=== PATIENT | female | born 1945 | race Caucasian/White ===

== ENCOUNTER 2017-06-05 14:38 | Emergency (ER) | payer MEDICARE, MEDICAID ==
[~2017-06-05] VITALS: Ht 172.7 cm; Wt 59.0 kg
[~2017-06-05 14:38] MED LIST: AVPAK AZITHROM250 MG PO; PREDNISONE 20MG20 MG PO
[2017-06-05 15:18] LABS: HEMOGLOBIN 13.8 g/dL (12.2-16.2); LYMPH # 2.1 K/mm3 (0.7-4.5); LYMPH % 27.4 % (10-50.0)
--- OUTSIDE RECORDS SUMMARY | 2017-06-05 15:22 | External Medical Summary Rpt ---
Author Author ALLISON [facility] Organization [facility] Address Unknown Phone Unavailable Care Team Providers Care Rosin Barrel Filler Name Role Phone JUAN SCHAFFER PCP [phone] Encounter ALLISON GARCIA [id number] Date(s): 08/12/16 - 08/18/16 [facility] [address] 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, INIT Vital Signs Most recent 1 2 3 to oldest [Reference Range]: Temperature Tympanic Temporal artery Temporal artery Source (08/18/16 8:55 AM) scanning (08/18/16 scanning (08/18/16 8:45 AM) 8:20 AM) Temperature Fahrenheit Fahrenheit Fahrenheit Mode (08/18/16 8:55 AM) (08/18/16 8:45 AM) (08/18/16 8:20 AM) Temperature, 97.9 Deg F 98.0 Deg F 98.1 Deg F Fahrenheit (08/18/16 8:55 AM) (08/18/16 8:45 AM) (08/18/16 8:20 AM) [96.8-99.7 Deg F] Clinical 36.6 Deg C 36.7 Deg C 36.7 Deg C Temperature, (08/18/16 8:55 AM) (08/18/16 8:20 AM) (08/18/16 6:50 AM) C Pulse Method Pulse Oximetry (08/18/16 6:50 AM) Peripheral 86 bpm Pulse Rate (08/18/16 6:50 AM) [60-100 bpm] Heart Rate 70 bpm 82 bpm 84 bpm Monitored (08/18/16 9:21 AM) (08/18/16 8:55 AM) (1/19/17 8:40 AM) [60-100 bpm] Respiratory 16 Breaths/Min 16 Breaths/Min 14 Breaths/Min Rate [14-20 (08/18/16 9:21 AM) (08/18/16 8:55 AM) (08/18/16 8:40 AM) Breaths/Min] Blood Arm, left upper Pressure (08/18/16 6:50 AM) Location Blood 150/68 mmHg 141/61 mmHg 116/57 mmHg Pressure *HI* *HI* (08/18/16 8:40 AM) [90-140/60-9 (08/18/16 9:21 AM) (08/18/16 8:55 AM) 0 mmHg] Mean 80 78 78 Arterial (08/18/16 8:40 AM) (08/18/16 8:30 AM) (08/18/16 8:25 AM) Pressure (MAP)-BMDI Oxygen 95 % 93 % 96 % Saturation (08/18/16 9:21 AM) *LOW* (08/18/16 8:40 AM) [94-100 %] (08/18/16 8:55 AM) Oxygen Room air Room air Room air Therapy Mode (08/18/16 9:21 AM) (08/18/16 8:55 AM) (08/18/16 8:40 AM) Oxygen Flow 4 Liter/Min Rate (08/18/16 8:20 AM) Problem List Condition Effective Status Health Informant Dates Status Back Active pain(Confirm ed) Osteoporosis Active (Confirmed) Allergies, Adverse Reactions, Alerts Substance Reaction Severity Status penicillin Active Zithromax Z-Fabián Active Medications acetaminophen-oxyCODONE (Percocet 7.5/325) 1 Tab, Oral, Four Times A Day, Refills: 0 Results No data available for this section Immunizations No data available for this section Procedures No data available for this section Social History Social History Response Type Smoking Status Never smoker Assessment and Plan No data available for this section Hospital Discharge Instructions No data available for this section
--- OUTSIDE RECORDS SUMMARY | 2017-06-05 15:22 | External Medical Summary Rpt ---
Author Author ALLISON [facility] Organization [facility] Address Unknown Phone Unavailable Care Team Providers Care Private Duty Lpn Name Role Phone JUAN SCHAFFER PCP [phone] Encounter ALLISON GARCIA [id number] Date(s): 08/12/16 - 08/18/16 [facility] [address] [place] [address]- Discharge Disposition: OP Self Care or Home [...]
--- OUTSIDE RECORDS SUMMARY | 2017-06-05 15:24 | External Medical Summary Rpt | CCD ---
Author Author , CHLOE CORONA Address Unknown Phone [email or web address] Care Team Providers Care Pomology Teacher Name Role Phone [facility] Unavailable Unavailable HOSPITAL, [facility] Unavailable Unavailable [facility], [facility], Unavailable Unavailable [facility] ONEIL STEVEN, ONEIL Unavailable Unavailable STEVEN E[facility] OP[facility], Unavailable Unavailable [facility] Unavailable Unavailable Jose Luis HINDS, Jose Luis HINDS Unavailable Unavailable T ISSAC WARD, Unavailable Unavailable ISSAC WARD [facility] Unavailable Unavailable GROUP P, [facility] P SHARLENE CHR, SHARLENE CHR Unavailable Unavailable [facility] Unavailable Unavailable INC, [facility] Unavailable Unavailable HOSPITAL P, [facility] Unavailable Unavailable [facility], [facility] Unavailable Unavailable ASSOCIAT, [facility] DANIEL LISA Unavailable Unavailable HOLDINGS, [facility]LLERMO LAZO [facility], Unavailable Unavailable GUILLERMO LAZO PSC GUILLERMO LAZO MD Unavailable Unavailable PS, GUILLERMO LAZO MD PS SANTOS DIPTI, SANTOS Unavailable Unavailable DIPTI [facility] Unavailable Unavailable INTERNAL MEDI, [facility] INTER[facility] MEDI [facility] Unavailable Unavailable PSC, [facility] PSC [facility] Unavailable Unavailable AMBULANCE SE, [facility] AMBULANCE SE [facility] Unavailable Unavailable URGENT TREAT, [facility] Un[facility], Unavailable Unavailable [facility] Unavailable Unavailable [facility] [place], [facility] [place] Purpose Continuity of Care Document - 10-27-2009 through 2016 Problems Code Diagnosis DOS Provider Status [id number] COMBINED 05-09-2017 GUILLERMO QURESHI MD AGE-RELATED PS CATARACT RIGHT EYE B27634 COMBINED 05-03-2017 GUILLERMO QURESHI AGE-RELATED PSC CATARACT BILATERAL K5909 OTHER 04-19-2017 [facility] E8342 HYPOMAGNESE 03-14-2017 [facility]I HEALTH SOLUTIONS IN K5900 CONSTIPATIO 03-14-2017 [facility] N HEALTH UNSPECIFIED SOLUTIONS IN M816 LOCALIZED 03-14-2017 [facility] OSTEOPOROSI HEALTH S [place] SOLUTIONS IN M8978 MAJOR 03-14-2017 LAB DANIEL OSSEOUS LISA DEFECT HOLDINGS OTHER SITE [id number] STABLE 03-14-2017 [facility] FX HEALTH UNS THOR SOLUTIONS VERT SUB IN ENC FX RTN HLN [id number] STABLE 03-14-2017 [facility] FX HEALTH UNS LUMB SOLUTIONS VERT SUB IN ENC FX RTN HLN [id number] [facility] 09-16-2016 [place] [facility]TH[facility]IC T11-T12 ASSOCIAT VERT INIT ENC CLOS FX [id number] [facility] 09-16-2016 [place] [facility] ORTHOPEDIC 1ST LUMB ASSOCIAT VERT SUB ENC FX RTN HLN Z4889 ENCOUNTER 09-09-2016 [facility] FOR OTHER REGIONAL SPECIFIED MEDICAL SURGICAL CENTE AFTERCARE F33376 SPONDYLOSIS 08-30-2016 [facility] W/O RADIOLOGY MYELOPATH/R GROUP P ADICULOPATH Y LUMB RGN [id number] COLLAPSED 08-30-2016 [place] [facility] LUMB RGN ASSOCIAT INIT ENC FX M899 DISORDER OF 08-30-2016 [place] [facility] UNSPECIFIED ASSOCIAT M1990 UNSPECIFIED 08-18-2016 [facility] OSTEOARTHRI TIS UNSPECIFIED SITE O95157 OTHER LONG 08-18-2016 [facility] TER[facility] CURRENT DRUG THERAPY Z880 ALLERGY 08-18-2016 [facility] STATUS TO [facility] PENICILLIN Z881 ALLERGY 08-18-2016 [facility] STATUS TO [facility] OTHER ANTIBIOTIC AGENTS STATUS J11747 ENCOUNTER 08-15-2016 [facility] FOR OTHER REGIONAL PREPROCEDUR MEDICAL AL CENTE EXAMINATION M48.56XA COLLAPSED 08-04-2016 [place], NOT ELSEWHERE CLASSIFIED, LUMBAR REGION, INITIAL ENCOUNTER FOR FRACTURE Z88.0 ALLERGY 08-04-2016 STATUS TO PENICILLIN Z88.3 ALLERGY 08-04-2016 STATUS TO OTHER ANTI-INFECT NARAYAN AGENTS STATUS N200 CALCULUS OF 07-28-2016 [facility] R252 CRAMP AND 07-28-2016 [facility] SE R52 PAIN 07-28-2016 [facility] UNSPECIFIED N EMERGENCY PHYS Z883 ALLERGY 07-28-2016 [place] [facility]US OTH [facility] ANTI-INFECT HOSPITAL NARAYAN AGENTS STATUS M546 PAIN IN 06-29-2016 [facility] SPINE URGENT TREAT N758 OTHER 06-29-2016 [facility] DISEASES OF [facility] BARTHOLINS URGENT GLAND TREAT R1013 EPIGASTRIC 06-29-2016 [facility] E782 MIXED 10-05-2015 [facility] HYPERLIPIDE [facility] MARI URGENT TREAT R42 DIZZINESS 07-01-2015 [facility] GIDDINESS URGENT TREAT Z0000 ENCOUNTER 07-01-2015 [facility] GEN ADULT [facility] MED EXAM URGENT W/O TREAT ABNORMAL FIND [id number] DISPL FX 06-29-2015 [facility] [place] [facility] MALLEOLUS LT FIB SUBS CLOS FX RTN [id number] NDSPL FX 06-29-2015 [facility] LT FIBULA INIT CLOS FX P03909 CORTICAL 06-05-2015 ONEIL STEVEN AGE-RELATED CATARACT BILATERAL H2513 AGE-RELATED 06-05-2015 ONEIL STEVEN NUCLEAR CATARACT BILATERAL H34615 PAIN IN 05-19-2015 [facility] [place] LEFT FOOT RADIOLOGY [id number] DISPL FX 05-19-2015 [facility] UNS FIBULA INIT CLOS FX 7241 PAIN IN 03-31-2015 [facility] SPINE INC 7242 LUMBAGO 03-31-2015 [facility] HOS[facility] INC V571 OTHER 03-31-2015 [facility] THERAPY INC 27858 PATHOLOGIC 02-19-2015 [place] FRACTURE OF MEDICAL VERTEBRAE IMAGING ASS 01375 KYPHOSIS 02-19-2015 [place] ACQUIRED [facility] POSTURAL IMAGING ASS 8052 CLOS FX 02-19-2015 [facility] DORS [facility] VERTEBRA INC W/O MENTION SP CORD INJURY 53444 DISPLCMT 02-11-2015 [place] LUMBAR MEDICAL INTERVERT IMAGING ASS DISC W/O MYELOPATHY 17073 SPINAL STEN 02-11-2015 [place] LUMB REG MEDICAL W/O IMAGING ASS NEUROGENIC CLAUDICATIO N 44614 UNSPECIFIED 02-11-2015 [facility] OSTEOPOROSI IMAGING ASS S 7245 UNSPECIFIED 01-27-2015 [place] [facility] 8471 THORACIC 12-13-2014 [facility] SPRAIN AND N EMERGENCY STRAIN PHYS 8479 SPRAIN AND 12-13-2014 [facility] UNSPECIFIED HOSPITAL SITE OF BACK E9289 UNSPECIFIED 12-13-2014 [facility] ACCIDENT N EMERGENCY PHYS V140 PERSONAL 12-13-2014 [place] HISTORY OF COMMUNITY ALLERGY TO HOSPITAL PENICILLIN 7392 NONALLOPATH 12-12-2014 SHARLENE CHR IC LESION OF THORACIC REGION NEC 7394 NONALLOPATH 12-12-2014 SH[facility]E CHR IC LESION OF SACRAL REGION NEC 8460 SPRAIN AND 12-12-2014 SHARLENE CHR STRAIN OF LUMBOSACRAL 5119 UNSPECIFIED 07-12-2014 [facility] PLEURAL [facility] P 11755 OTHER 07-12-2014 [place] DISEASES OF MEDICAL LUNG NOT IMAGING ASS ELSEWHERE CLASSIFIED 12507 CHEST PAIN 07-12-2014 [place] UNSPECIFIED MEDICAL IMAGING ASS 29011 OTHER CHEST 07-12-2014 [facility] PAIN [facility] P V1582 PERS HX 07-12-2014 [facility] TOBACCO USE [facility] P [facility] 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 3804 IMPACTED 05-16-2012 [facility]EN [facility] PSC 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 FRACTURE OF UPPER END OF TIBIA 05565 ENTHESOPATH 11-11-2009 [facility] Y OF PODIATRY UNSPECIFIED PLLC SITE 37396 PLICA 11-11-2009 [facility] SYNDROME PODIATRY PLLC 7295 PAIN IN 11-11-2009 [facility] SOFT PODIATRY TISSUES OF PLLC LIMB 73871 UNSPECIFIED 11-11-2009 [facility] SITE OF PODIATRY ANKLE PLLC SPRAIN AND STRAIN 78393 DISORDER OF 11-04-2009 [place] BONE AND [facility] CARTILAGE [facility] UNSPECIFIED V4981 ASYMPTOMATI 11-04-2009 [facility] [place] C RADIOLOG[facility] POSTMENOPAU MURIEL STATUS 15653 PATHOLOGIC 10-27-2009 EL[facility] L.P. FRACTURE UNSPECIFIED SITE 60972 CLOSED 10-27-2009 [facility] FRACTURE OF PODIATRY [facility] FIBULA K59.09 OTHER CONSTIP[facility]IO N Encounters Encounter Start End Date Code Location Performer Type Date HOSPITAL [facility] - 7 7 [facility] - 7 7 [facility] - 7 7 [facility] - [facility] - 7 7 [facility] - 7 7 [facility] - [address] [facility] [address] [facility] - [address] [facility] - 5 5 [facility] - 5 5 [facility] - 5 5 [facility] - 5 5 [facility] [address] [facility] - [address] [facility] - 4 4 [facility] - 0 0 [facility] - 0 0 [facility] - 0 0 [facility]
--- OUTSIDE RECORDS SUMMARY | 2017-06-05 15:24 | External Medical Summary Rpt | CCD ---
Author Author , CHLOE CORONA Address Unknown Phone [email or web address] Care Team Providers Care Publication Manager Name Role Phone [facility] Unavailable Unavailable [facility], [facility] Unavailable Unavailable MEDICAL CENTE, [facility], Unavailable Unavailable [facility] ONEIL STEVEN, ONEIL Unavailable Unavailable STEVEN ESVIN OPAL, Unavailable Unavailable [facility] OPAL [facility] L[facility] Unavailable Unavailable Jose Luis HINDS, Jose Luis HINDS Unavailable Unavailable T ISSAC WARD, Unavailable Unavailable ISSAC WARD [facility] Unavailable Unavailable GROUP P, [facility] SHARLENE CHR, SHARLENE CHR Unavailable Unavailable [facility] Unavailable Unavailable INC, [facility] Unavailable Unavailable HOSPITAL P, [facility] Unavailable Unavailable IM[facility]ING [facility], [facility] Unavailable Unavailable ASSOCIAT, [facility] LAB DANIEL LISA Unavailable Unavailable HOLDINGS, LAB DANIEL LISA HOLDINGS GUILLERMO LAZO PSC, Unavailable Unavailable GUILLERMO LAZO PSC GUILLERMO LAZO MD Unavailable Unavailable PS, GUILLERMO LAZO MD PS SANTOS DIPTI, SANTOS Unavailable Unavailable DIPTI [facility] Unavailable Unavailable INTERNAL MEDI, [facility] INTERNAL MEDI [facility] Unavailable [facility]available PSC, [facility] PSC [facility] Unavailable Unavailable AMBULANCE SE, [facility] AMBULANCE SE [facility] Unavailable Unavailable URGENT TREAT, [facility] Un[facility], Unavailable Unavailable [facility] Unavailable Unavailable SOLUTIONS [place], [employer] [place] Purpose Continuity of Care Document - 10-27-2009 through 2016 Problems Code Diagnosis DOS Provider Status [id number] COMBINED 05-09-2017 GUILLERMO QURESHI MD AGE-RELATED PS CATARACT RIGHT EYE W07701 COMBINED 05-03-2017 GUILLERMO QURESHI AGE-RELATED PSC CATARACT BILATERAL K5909 OTHER 04-19-2017 [facility] INC E8342 HYPOMAGNESE 03-14-2017 [facility]ALTH SOLUTIONS IN K5900 CONSTIPATIO 03-14-2017 [facility] N HEALTH UNSPECIFIED SOLUTIONS IN M816 LOCALIZED 03-14-2017 [facility] OSTEOPOROSI HEALTH S [place] SOLUTIONS IN M8978 MAJOR 03-14-2017 LAB DANIEL OSSEOUS LISA DEFECT HOLDINGS OTHER SITE N40086L STABLE 03-14-2017 [facility] FX HEALTH UNS THOR SOLUTIONS VERT SUB IN ENC FX RTN HLN [id number] STABLE 03-14-2017 [facility] FX HEALTH UNS LUMB SOLUTIONS VERT SUB IN ENC FX RTN HLN [id number] [facility]GE 09-16-2016 [place] [facility] ORTHOPEDIC T11-T12 ASSOCIAT VERT INIT ENC CLOS FX [id number] [facility] 09-16-2016 [place] [facility] FX ORTHOPEDIC 1ST LUMB ASSOCIAT VERT SUB ENC FX RTN HLN Z4889 ENCOUNTER 09-09-2016 [facility] FOR OTHER REGIONAL SPECIFIED MEDICAL SURGICAL CENTE AFTERCARE K51162 SPONDYLOSIS 08-30-2016 [facility] W/O RADIOLOGY MYELOPATH/R GROUP P ADICULOPATH Y LUMB RGN [id number] COLLAPSED 08-30-2016 [place] [facility]TH[facility]EDIC LUMB RGN ASSOCIAT INIT ENC FX M899 DISORDER OF 08-30-2016 [place] [facility] UNSPECIFIED ASSOCIAT M1990 UNSPECIFIED 08-18-2016 [facility] OSTEOARTHRI TIS UNSPECIFIED SITE P61470 OTHER LONG 08-18-2016 [facility] TERM [facility] CURRENT DRUG THERAPY Z880 ALLERGY 08-18-2016 [facility] STATUS TO [facility] PENICILLIN Z881 ALLERGY 08-18-2016 [facility] STATUS TO [facility] OTHER ANTIBIOTIC AGENTS STATUS M34148 ENCOUNTER 08-15-2016 [facility] FOR OTHER REGIONAL PREPROCEDUR MEDICAL AL CENTE EXAMINATION M48.56XA COLLAPSED 08-04-2016 [place], NOT ELSEWHERE CLASSIFIED, LUMBAR REGION, INITIAL ENCOUNTER FOR FRACTURE Z88.0 ALLERGY 08-04-2016 STATUS TO PENICILLIN Z88.3 ALLERGY 08-04-2016 STATUS TO OTHER ANTI-INFECT NARAYAN AGENTS STATUS N200 CALCULUS OF 07-28-2016 [facility] [place] [facility] R252 CRAMP AND 07-28-2016 [facility] AMBULANCE SE R52 PAIN 07-28-2016 [facility] UNSPECIFIED N EMERGENCY PHYS Z883 ALLERGY 07-28-2016 [place] STATUS OTH [facility] ANTI-INFECT HOSPITAL NARAYAN AGENTS STATUS M546 PAIN IN 06-29-2016 [facility] THORACIC [facility] SPINE URGENT TREAT N758 OTHER 06-29-2016 [facility] DISEASES OF [facility] BARTHOLINS URGENT GLAND TREAT R1013 EPIGASTRIC 06-29-2016 [facility] E782 MIXED 10-05-2015 [facility] HYPERLIPIDE [facility] MARI URGENT TREAT R42 DIZZINESS 07-01-2015 [facility] AND [facility] GIDDINESS URGENT TREAT Z0000 ENCOUNTER 07-01-2015 [facility] GEN ADULT [facility] MED EXAM URGENT W/O TREAT ABNORMAL FIND [id number] DISPL FX 06-29-2015 [facility] [place] [facility] MALLEOLUS LT FIB SUBS CLOS FX RTN [id number] NDSPL FX 06-29-2015 [facility] LT FIBULA INIT CLOS FX N50145 CORTICAL 06-05-2015 ONEIL STEVEN AGE-RELATED CATARACT BILATERAL H2513 AGE-RELATED 06-05-2015 ONEIL STEVEN NUCLEAR CATARACT BILATERAL C49807 PAIN IN 05-19-2015 [facility] [place] LEFT FOOT RADIOLOGY E1320KH DISPL FX 05-19-2015 [facility] UNS FIBULA INIT CLOS FX 7241 PAIN IN 03-31-2015 [facility] SPINE INC 7242 LUMBAGO 03-31-2015 [facility] HOS[facility] INC V571 OTHER 03-31-2015 [facility] THERAPY INC 66775 PATHOLOGIC 02-19-2015 [place] FRACTURE OF MEDICAL VERTEBRAE IMAGING ASS 05092 KYPHOSIS 02-19-2015 [place] ACQUIRED MEDICAL POSTURAL IMAGING ASS 8052 CLOS FX 02-19-2015 [facility]ORS [facility] VERTEBRA INC W/O MENTION SP CORD INJURY 71088 DISPLCMT 02-11-2015 [place] L[facility] INTERVERT IMAGING ASS DISC W/O MYELOPATHY 87517 SPINAL STEN 02-11-2015 [place] L[facility] REG MEDICAL W/O IMAGING ASS NEUROGENIC CLAUDICATIO N 58550 UNSPECIFIED 02-11-2015 [place] [facility] OSTEOPOROSI IMAGING ASS S 7245 UNSPECIFIED 01-27-2015 [place] [facility] 8471 THORACIC 12-13-2014 [facility] SPRAIN AND N EMERGENCY STRAIN PHYS 8479 SPRAIN AND 12-13-2014 [facility] UNSPECIFIED HOSPITAL SITE OF BACK E9289 UNSPECIFIED 12-13-2014 [facility] ACCIDENT N EMERGENCY PHYS V140 PERSONAL 12-13-2014 [place] HISTORY OF COMMUNITY ALLERGY TO HOSPITAL PENICILLIN 7392 NONALLOPATH 12-12-2014 [facility] CHR IC LESION OF THORACIC REGION NEC 7394 NONALLOPATH 12-12-2014 [facility] CHR IC LESION OF SACRAL REGION NEC 8460 SPRAIN AND 12-12-2014 SH[facility]E CHR STRAIN OF LUMBOSACRAL 5119 UNSPECIFIED 07-12-2014 [place] PLEURAL [facility] P 16574 OTHER 07-12-2014 [place] DISEASES OF MEDICAL LUNG NOT IMAGING ASS ELSEWHERE CLASSIFIED 43165 CHEST PAIN 07-12-2014 [place] UNSPECIFIED MEDICAL IMAGING ASS 58765 OTHER CHEST 07-12-2014 [place] PAIN [facility] P V1582 PERS HX 07-12-2014 [place] TOBACCO USE [facility] P HAZARDS HEALTH 83720 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-2012 [facility] IBULAR JOINT DISORDERS 3804 IMPACTED 05-16-2012 [facility] PSC 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 FRACTURE OF UPPER END OF [place] 67500 ENTHESOPATH 11-11-2009 [facility] Y OF PODIATRY UNSPECIFIED PLLC SITE 07241 PLICA 11-11-2009 [facility] SYNDROME PODIATRY PLLC 7295 PAIN IN 11-11-2009 [facility] SOFT PODIATRY TISSUES OF PLLC [place] 41501 UNSPECIFIED 11-11-2009 [facility] SITE OF PODIATRY ANKLE PLLC SPRAIN AND STRAIN 10441 DISORDER OF 11-04-2009 [place] [facility] UNSPECIFIED V4981 ASYMPTOMATI 11-04-2009 [facility] [place] [facility] RADIOLOGY POSTMENOPAU MURIEL STATUS 28935 PATHOLOGIC 10-27-2009 [facility] FRACTURE UNSPECIFIED SITE 52715 CLOSED 10-27-2009 [facility] FRACTURE OF PODIATRY [facility] K59.09 OTHER CONSTIPATIO N Encounters Encounter Start End Date Code Location Performer Type Date [facility] - 7 7 [facility] - 7 7 [facility] - 7 7 [facility] - 7 7 [facility] - 7 7 [facility] - 7 7 [facility] - 6 6 [facility] - 5 5 [facility] - 5 5 [facility] - 5 5 [facility] - 5 5 [facility] - 5 5 [facility] - 5 5 [facility] [place] - 5 5 [facility] - 5 5 [facility] - 4 4 [facility] - 0 0 [facility] 0 0 [facility] [place] - 0 0 [facility]
--- OUTSIDE RECORDS SUMMARY | 2017-06-05 15:26 | External Medical Summary Rpt | CCD ---
Author Author , CHLOE CORONA Address Unknown Phone [email or web address] Care Team Providers Care Flexible Nanny Name Role Phone [facility] Unavailable Unavailable HOSPITAL, [facility] Unavailable Unavailable MEDICAL CENTE, [facility], Unavailable Unavailable [facility] ONEIL STEVEN, ONEIL Unavailable Unavailable STEVEN [facility], Unavailable Unavailable [facility] L[facility]P. Unavailable Unavailable Jose Luis HINDS, Jos eLuis HINDS Unavailable Unavailable T ISSAC WARD, Unavailable Unavailable ISSAC WARD [facility] Unavailable Unavailable GROUP P, [facility] SHARLENE CHR, SHARLENE CHR Unavailable Unavailable [facility] Un[facility] Un[facility], [facility] Unavailable Unavailable [facility]PITAL P, [facility] Un[facility] Un[facility], [facility] Unavailable Unavailable ASS[facility]AT, [facility] DANIEL LISA Unavailable Unavailable HOLDINGS, [facility], Unavailable Unavailable [facility] GUILLERMO LAZO MD Unavailable Unavailable PS, GUILLERMO LAZO MD PS SANTOS DIPTI, SANTOS Unavailable Unavailable [facility] Unavailable Unavailable INTER[facility] MEDI, [facility] Unavailable Unavailable PSC, [facility] Unavailable [facility]available AMBULANCE SE, [facility] Unavailable Unavailable URGENT TREAT, [facility] Unavailable Unavailable [facility], [facility], Unavailable Unavailable [facility] Unavailable Unavailable SOLUTIONS IN, Diab[facility] IN Purpose Continuity of Care Document - 10-27-2009 through 2016 Problems Code Diagnosis DOS Provider Status [id number] COMBINED 05-09-2017 GUILLERMO QURESHI MD AGE-RELATED PS CATARACT RIGHT EYE H65857 COMBINED 05-03-2017 GUILLERMO QURESHI AGE-RELATED PSC CATARACT BILATERAL K5909 OTHER 04-19-2017 [facility] E8342 HYPOMAGNESE 08-15-2017 [facility] SOLUTIONS IN K5900 CONSTIPATIO 03-14-2017 [facility] N HEALTH UNSPECIFIED SOLUTIONS IN M816 LOCALIZED 03-14-2017 [facility]I [facility] S [place] SOLUTIONS IN M8978 MAJOR 03-14-2017 LAB DANIEL OSSEOUS LISA DEFECT HOLDINGS OTHER SITE [id number] STABLE 03-14-2017 [facility] UNS THOR SOLUTIONS VERT SUB IN ENC FX RTN HLN [id number] STABLE 03-14-2017 [facility] UNS LUMB SOLUTIONS VERT SUB IN ENC FX RTN HLN [id number] [facility] 09-16-2016 [place] [facility] T11-T12 ASSOCIAT VERT INIT ENC CLOS FX [id number] [facility] 09-16-2016 [place] [facility] 1ST LUMB ASSOCIAT VERT SUB ENC FX RTN HLN Z4889 ENCOUNTER 09-09-2016 [facility] FOR OTHER REGIONAL SPECIFIED MEDICAL SURGICAL CENTE AFTERCARE U07506 SPONDYLOSIS 08-30-2016 [facility] W/O RADIOLOGY MYELOPATH/R GROUP P ADICULOPATH Y LUMB RGN [id number] COLLAPSED 08-30-2016 [facility] VERT NEC ORTHOPEDIC LUMB RGN ASSOCIAT INIT ENC FX M899 DISORDER OF 08-30-2016 [facility] BONE ORTHOPEDIC UNSPECIFIED ASSOCIAT M1990 UNSPECIFIED 08-18-2016 [facility] OSTEOARTHRI TIS UNSPECIFIED SITE M72634 OTHER LONG 08-18-2016 [facility] TERM EAST CURRENT DRUG THERAPY Z880 ALLERGY 08-18-2016 [facility] STATUS TO [facility] PENICILLIN Z881 ALLERGY 08-18-2016 [facility] STATUS TO [facility] OTHER ANTIBIOTIC AGENTS STATUS G84565 ENCOUNTER 08-15-2016 [facility] FOR OTHER REGIONAL PREPROCEDUR MEDICAL AL CENTE EXAMINATION N200 CALCULUS OF 07-28-2016 [facility] R252 CRAMP AND 07-28-2016 [facility] SPASM [facility] SE R52 PAIN 07-28-2016 [facility] UNSPECIFIED N EMERGENCY PHYS Z883 ALLERGY 07-28-2016 [place] STATUS OTH COMMUNITY ANTI-INFECT HOSPITAL NARAYAN AGENTS STATUS M546 PAIN IN 06-29-2016 [facility] THORACIC [facility] SPINE URGENT TREAT N758 OTHER 06-29-2016 [facility] DISEASES OF [facility] BARTHOLIN URGENT GLAND TREAT R1013 EPIGASTRIC 06-29-2016 [facility] PAIN [facility] URGENT TREAT E782 MIXED 10-05-[address] [facility] URGENT TREAT R42 DIZZINESS 07-01-2015 [facility] AND [facility] GIDDINESS URGENT TREAT Z0000 ENCOUNTER 07-01-2015 [place] GEN ADULT [facility] MED EXAM URGENT W/O TREAT ABNORMAL FIND [id number] DISPL FX 06-29-2015 [facility] [place] [facility] MALLEOLUS LT FIB SUBS CLOS FX RTN [id number] NDSPL FX 06-29-2015 [facility] LT FIBULA INIT CLOS FX [id number] CORTICAL 06-05-2015 ONEIL STEVEN AGE-RELATED CATARACT BILATERAL H2513 AGE-RELATED 06-05-2015 ONEIL STEVEN NUCLEAR CATARACT BILATERAL Y11603 PAIN IN 05-19-2015 [facility] [place] LEFT FOOT RADIOLOGY [id number] DISPL FX 05-19-2015 [facility] UNS FIBULA INIT CLOS FX 7241 PAIN IN 03-31-2015 [place] THORACIC [facility] SPINE INC 7242 LUMBAGO 03-31-2015 [facility] HOSP INC V571 OTHER 03-31-2015 [place] PHYSICAL [facility] THERAPY INC 99833 PATHOLOGIC 02-19-2015 [place] FRACTURE OF MEDICAL VERTEBRAE IMAGING ASS 66425 KYPHOSIS 02-19-2015 [place] ACQUIRED MEDICAL POSTURAL IMAGING ASS 8052 CLOS FX 02-19-2015 [place] DORS [facility] VERTEBRA INC W/O MENTION SP CORD INJURY 55010 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 75193 SPINAL STEN 02-11-2015 [place] LUMB REG MEDICAL W/O IMAGING ASS NEUROGENIC CLAUDICATIO N 51507 UNSPECIFIED 02-11-2015 [place] [facility] OSTEOPOROSI IMAGING ASS S 7245 UNSPECIFIED 01-27-2015 [place] [facility] 8471 THORACIC 12-13-2014 [facility] SPRAIN AND N EMERGENCY STRAIN PHYS 8479 SPRAIN AND 12-13-2014 [place] STRAIN OF [facility] SITE OF BACK E9289 UNSPECIFIED 12-13-2014 [facility] ACCIDENT N EMERGENCY PHYS V140 PERSONAL 12-13-2014 [place] HISTORY OF COMMUNITY ALLERGY TO HOSPITAL PENICILLIN 7392 NONALLOPATH 12-12-2014 SH[facility]E CHR IC LESION OF THORACIC REGION NEC 7394 NONALLOPATH 12-12-2014 [facility] CH[facility] IC LESION OF SACRAL REGION NEC 8460 SPRAIN AND 12-12-2014 [facility] CHR STRAIN OF LUMBOSACRAL 5119 UNSPECIFIED 07-12-2014 [place] PLEURAL [facility] H[facility] P 47981 OTHER 07-12-2014 [place] DISEASES OF MEDICAL LUNG NOT IMAGING ASS ELSEWHERE CLASSIFIED 60175 CHEST PAIN 07-12-2014 [facility] UNSPECIFIED MEDICAL IMAGING ASS 47073 OTHER CHEST 07-12-2014 [place] PAIN [facility] P V1582 PERS HX 07-12-2014 [place] TOBACCO USE [facility] P [facility]ZARDS HEALTH 84513 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-2012 [facility]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 FRACTURE OF UPPER END OF TIBIA 87787 ENTHESOPATH 11-11-2009 [facility] Y OF PODIATRY UNSPECIFIED PLLC SITE 70323 PLICA 11-11-2009 [facility] SYNDROME PODIATRY PLLC 7295 PAIN IN 11-11-2009 [facility] SOFT PODIATRY TISSUES OF PLLC LIMB 54920 UNSPECIFIED 11-11-2009 [facility] SITE OF PODIATRY ANKLE PLLC SPRAIN AND STRAIN 19666 DISORDER OF 11-04-2009 [facility] UNSPECIFIED V4981 ASYMPTOMATI 11-04-2009 [facility] [place] [facility] POSTMENOPAU MURIEL STATUS 58866 PATHOLOGIC 10-27-2009 [facility] L.P. FRACTURE UNSPECIFIED SITE 60902 CLOSED 10-27-2009 [facility] FRACTURE OF PODIATRY SHAFT OF PLLC FIBULA Encounters Encounter Start End Date Code Location Performer Type Date [facility]OSPITAL [facility] - 7 7 [facility] 7 [facility] - 7 7 [facility] - 7 7 [facility] [place] [facility] 6 [facility] - 5 5 [facility] [place] [facility] - [facility] [place] [facility] 0 0 [facility]
--- OUTSIDE RECORDS SUMMARY | 2017-06-05 15:26 | External Medical Summary Rpt ---
Author Author CHLOE Vásquez, CHLOE Production Organization [employer] Address Unknown Phone Unavailable Results Comprehensive metabolic 2000 panel in Serum or Plasma Observa Value Referen Units Interpr Notes Date tion ce etation Range Albumin/G 1.1 - 1.8 No Normal No Sep 20 lobulin informati informati 2017 [Mass on in on in 12:38 PM ratio] in source source Serum or data data Plasma Albumin 3.4 - 5.0 gm/dL Normal No Sep 20 [Mass/vol informati 2017 ume] in on in 12:38 PM Serum or source Plasma data Alkaline 46 - 116 U/L Normal No Sep 20 phosphata informati 2017 se on in 12:38 PM [Enzymati source c data activity/ volume] in Serum or Plasma Bilirubin 0.2 - 1.0 mg/dL Normal No Sep 20 .total informati 2017 [Mass/vol on in 12:38 PM ume] in source Serum or data Plasma Urea 7 - 18 mg/dL Normal No Sep 20 nitrogen informati 2017 [Mass/vol on in 12:38 PM ume] in source Serum or data Plasma Calcium 8.5 - mg/dL Normal No Sep 20 [Mass/vol 10.1 informati 2017 ume] in on in 12:38 PM Serum or source Plasma data Chloride 98 - 107 mmoL/L Normal No Sep 20 [Moles/vo informati 2017 lume] in on in 12:38 PM Serum or source Plasma data Carbon 21.0 - mmoL/L Normal No Sep 20 dioxide, 32.0 informati 2017 total on in 12:38 PM [Moles/vo source lume] in data Serum or Plasma Creatinin 0.55 - mg/dL Normal No Sep 20 e 1.02 informati 2017 [Mass/vol on in 12:38 PM ume] in source Serum or data Plasma Estimated 59- ML/MIN No REFERENCE Sep 20 informati RANGE: 2017 glomerula on in >60 12:38 PM r source ML/MIN/1. filtratio data 73 SQUARE n rate METERSIf (GF this patient is -A merican, then multiply theresult by 1.210. Globulin 1.3 - 3.2 gm/dL Normal No Sep 20 [Mass/vol informati 2017 ume] in on in 12:38 PM Serum source data Glucose 74 - 106 mg/dL Normal No Sep 20 [Mass/vol informati 2017 ume] in on in 12:38 PM Serum or source Plasma data Potassium 3.5 - 5.1 mmoL/L Normal No Sep 20 inform 2017 [Moles/vo on in 12:38 PM lume] in source Serum or data Plasma Sodium 136 - 145 mmoL/L Normal No Sep 20 [Moles/vo informati 2017 lume] in on in 12:38 PM Serum or source Plasma data Aspartate 15 - 37 U/L Normal No Sep 20 inform2016 aminotran on in 12:38 PM sferase source [Enzymati data c activity/ volume] in Serum or Plasma Alanine 12 - 78 U/L Normal No Sep 20 aminotran inform2016 sferase on in 12:38 PM [Enzymati source c data activity/ volume] in Serum or Plasma Protein 6.4 - 8.2 gm/dL Normal No Sep 20 [Mass/vol informati 2017 ume] in on in 12:38 PM Serum or source Plasma data CBC W Auto Differential panel in Blood Observa Value Referen Units Interpr Notes Date tion ce etation Range Basophils 0 - 0.2 K/MM3 Normal No Sep 20 2016 [#/volume on in 12:38 PM ] in source Blood by data Automated count Basophils 0.1 - 2.0 % Normal No Sep 20 /100 inform2016 leukocyte on in 12:38 PM s in source Blood by data Automated count Eosinophi 0.0 - 0.4 K/mm3 Normal No Sep 20 ls informati 2016 [#/volume on in 12:38 PM ] in source Blood by data Automated count Eosinophi 0.1 - % Normal No Sep 20 ls/100 12.0 informati 2016 leukocyte on in 12:38 PM s in source Blood by data Automated count Granulocy 1.8 - 7.8 K/mm3 Normal No Sep 20 theo informati 2016 [#/volume on in 12:38 PM ] in source Blood by data Automated count Granulocy 37.0 - % Normal No Sep 20 theo/100 80.0 informati 2016 leukocyte on in 12:38 PM s in source Blood by data Automated count Hematocri 37.0 - % Normal No Sep 20 t [Volume 47.0 inform2016 on in 12:38 PM Fraction] source of Blood data Hemoglobi 12.2 - g/dL Normal No Sep 20 n 16.2 inform2016 [Mass/vol on in 12:38 PM ume] in source Blood data Lymphocyt 0.7 - 4.5 K/mm3 Normal No Sep 20 es 2016 [#/volume on in 12:38 PM ] in source Unspecifi data ed specimen by Automated count Lymphocyt 10 - 50.0 % Normal No Sep 20 es inform2016 [#/volume on in 12:38 PM ] in source Unspecifi data ed specimen by Automated count Erythrocy 27 - 31.2 pg High No Sep 20 te mean inform2016 corpuscul on in 12:38 PM ar source hemoglobi data n [Entitic mass] Erythrocy 31.8 - g/dl Normal No Sep 20 te mean 35.4 inform2016 corpuscul on in 12:38 PM ar source hemoglobi data n concentra tion [Mass/vol ume] by Automated count Erythrocy 82.2 - fl Normal No Sep 20 te mean 97.8 inform2016 corpuscul on in 12:38 PM ar volume source [Entitic data volume] by Automated count Monocytes 0.1 - 1.0 K/mm3 Normal No Sep 20 2016 [#/volume on in 12:38 PM ] in source Blood by data Automated count Monocytes 1.7 - 9.3 % Normal No Sep 20 /100 2016 leukocyte on in 12:38 PM s in source Blood by data Automated count Platelet 7.4 - fl Low No Sep 20 mean 10.4 inform2016 volume on in 12:38 PM [Entitic source volume] data in Blood by Automated count Platelets 142 - 424 K/mm3 Normal No Sep 20 2016 [#/volume on in 12:38 PM ] in source Blood data Erythrocy 4.2 - 5.4 M/mm3 Normal No Sep 20 theo inform2016 [#/volume on in 12:38 PM ] in source Amniotic data fluid Erythrocy 11.5 - % Normal No Sep 20 te 17.5 inform2016 distribut on in 12:38 PM ion width source [Entitic data volume] by Automated count Leukocyte 4.8 - K/MM3 Normal No Sep 20 s 10.8 informati 2017 [#/volume on in 12:38 PM ] in source Blood data
--- OUTSIDE RECORDS SUMMARY | 2017-06-05 15:26 | External Medical Summary Rpt | CCD ---
Demographics Preferred Language Korean Marital Status Unknown Orthodoxy Affiliation Unknown Race Unknown Ethnic Group Unknown Author Author , CHLOE CORONA Address Unknown Phone Immunization No patient found.
--- OUTSIDE RECORDS SUMMARY | 2017-06-05 15:26 | External Medical Summary Rpt | CCD ---
Author Author , CHLOE CORONA Address Unknown Phone [email or web address] Care Team Providers Care Supervisor Beet End Name Role Phone [facility] Unavailable Unavailable HOSPITAL, [facility] Unavailable Unavailable MEDICAL CENTE, [facility], Unavailable Unavailable [facility] ONEIL STEVEN, ONEIL Unavailable Unavailable STEVEN [facility], Unavailable Unavailable [facility] Unavailable Unavailable Jose Luis HINDS, Jose Luis HINDS Unavailable Unavailable T ISSAC WARD, Unavailable Unavailable ISSAC WARD [facility] Unavailable Unavailable GROUP P, [facility] SHARLENE CHR, SHARLENE CHR Unavailable Unavailable [facility] Un[facility] Unavailable [facility], [facility] Unavailable Unavailable HOSPITAL P, [facility] Unavailable Unavailable [facility], [facility] Unavailable Unavailable ASSOCIAT, [facility] DANIEL LISA Unavailable Unavailable HOLDINGS, [facility], Unavailable Unavailable [facility] GUILLERMO LAZO MD Unavailable Unavailable PS, GUILLERMO LAZO MD PS SANTOS DIPTI, SANTOS Unavailable Unavailable [facility] Un[facility] INTERNAL MEDI, [facility] Unavailable Unavailable PSC, [facility] Unavailable Unavailable AMBULANCE SE, [facility] Unavailable Unavailable URGENT TREAT, [facility] Unavailable [facility]available EMERGENCY PHYS, [facility], Unavailable Unavailable [facility] Unavailable Unavailable SOLUTIONS IN, [facility] [place] Purpose Continuity of Care Document - 10-27-2009 through 2016 Problems Code Diagnosis DOS Provider Status [id number] COMBINED 05-09-2017 GUILLERMO QURESHI MD AGE-RELATED PS CATARACT RIGHT EYE C31307 COMBINED 05-03-2017 GUILLERMO QURESHI AGE-RELATED PSC CATARACT BILATERAL K5909 OTHER 04-19-2017 [facility] E8342 HYPOMAGNESE 08-15-2017 [facility] SOLUTIONS IN K5900 CONSTIPATIO 03-14-2017 [facility] N HEALTH UNSPECIFIED SOLUTIONS IN M816 LOCALIZED 03-14-2017 [facility] OSTEOP[facility]OSI [facility] S [place] SOLUTIONS IN M8978 MAJOR 03-14-2017 LAB DANIEL OSSEOUS LISA DEFECT HOLDINGS OTHER SITE [id number] STABLE 03-14-2017 [facility] FX HEALTH UNS THOR SOLUTIONS VERT SUB IN ENC FX RTN HLN [id number] STABLE 03-14-2017 [facility]ALTH UNS LUMB SOLUTIONS VERT SUB IN ENC FX RTN HLN [id number] WEDGE 09-16-2016 [place] [facility] T11-T12 ASSOCIAT VERT INIT ENC CLOS FX [id number] WEDGE 09-16-2016 [place] [facility] 1ST LUMB ASSOCIAT VERT SUB ENC FX RTN HLN Z4889 ENCOUNTER 09-09-2016 [facility] FOR OTHER REGIONAL SPECIFIED MEDICAL SURGICAL CENTE AFTERCARE Q06848 SPONDYLOSIS 08-30-2016 [facility] W/O RADIOLOGY MYELOPATH/R GROUP P ADICULOPATH Y LUMB RGN [id number] COLLAPSED 08-30-2016 [facility] VERT NEC ORTHOPEDIC LUMB RGN ASSOCIAT INIT ENC FX M899 DISORDER OF 08-30-2016 [facility] BONE ORTHOPEDIC UNSPECIFIED ASSOCIAT M1990 UNSPECIFIED 08-18-2016 [facility] OSTEOARTHRI TIS UNSPECIFIED SITE S23589 OTHER LONG 08-18-2016 [facility] TERM EAST CURRENT DRUG THERAPY Z880 ALLERGY 08-18-2016 ST DOS [facility] STATUS TO [facility] PENICILLIN Z881 ALLERGY 08-18-2016 ST DOS [facility] STATUS TO [facility] OTHER ANTIBIOTIC AGENTS STATUS [id number] ENCOUNTER 08-15-2016 [facility] FOR OTHER REGIONAL PREPROCEDUR MEDICAL AL CENTE EXAMINATION N200 CALCULUS OF 07-28-2016 [facility] R252 CRAMP AND 07-28-2016 [facility] SPASM [facility] AMBULANCE SE R52 PAIN 07-28-2016 [facility] UNSPECIFIED N EMERGENCY PHYS Z883 ALLERGY 07-28-2016 [place] [facility] OTH COMM[facility]ITY ANTI-INFECT HOSPITAL NARAYAN AGENTS STATUS M546 PAIN IN 06-29-2016 [facility] THORACIC [facility] SPINE URGENT TREAT N758 OTHER 06-29-2016 [facility] DISEASES OF [facility] BARTHOLIN URGENT GLAND TREAT R1013 EPIGASTRIC 06-29-2016 [facility] PAIN [facility] URGENT TREAT E782 MIXED 10-05-2015 [facility] HYPERLIPIDE [facility] URGENT TREAT R42 DIZZINESS 07-01-2015 [facility] AND [facility] GIDDINESS URGENT TREAT Z0000 ENCOUNTER 07-01-2015 [facility] GEN ADULT [facility] MED EXAM URGENT W/O TREAT ABNORMAL FIND [id number] DISPL FX 06-29-2015 [facility] MALLEOLUS LT FIB SUBS CLOS FX RTN [id number] NDSPL FX 06-29-2015 [facility] LT FIBULA INIT CLOS FX K30046 CORTICAL 06-05-2015 ONEIL STEVEN AGE-RELATED CATARACT BILATERAL H2513 AGE-RELATED 06-05-2015 ONEIL STEVEN NUCLEAR CATARACT BILATERAL S44748 PAIN IN 05-19-2015 [facility] [place] LEFT FOOT RADIOLOGY [id number] DISPL FX 05-19-2015 [facility] UNS FIBULA INIT CLOS FX 7241 PAIN IN 03-31-2015 [place] [facility] THORACIC [facility] SPINE INC 7242 LUMBAGO 03-31-2015 [facility] HOSP INC V571 OTHER 03-31-2015 [place] [facility] PHYSICAL [facility] THERAPY INC 27510 PATHOLOGIC 02-19-2015 [place] FRACTURE OF MEDICAL [place]E IMAGING ASS 21508 KYPHOSIS 02-19-2015 [place] ACQUIRED MEDICAL POSTURAL IMAGING ASS 8052 CLOS FX 02-19-2015 [facility] DORS [facility] VERTEBRA INC W/O MENTION SP CORD INJURY 21550 DISPLCMT 02-11-2015 [place] LUMBAR MEDICAL INTERVERT IMAGING ASS DISC W/O MYELOPATHY 24797 SPINAL STEN 02-11-2015 [place] LUMB REG MEDICAL W/O IMAGING ASS NEUROGENIC CLAUDICATIO N 21512 UNSPECIFIED 02-11-2015 [place] [facility] OSTEOPOROSI IMAGING ASS S 7245 UNSPECIFIED 01-27-2015 [facility] BACKACHE [facility] 8471 THORACIC 12-13-2014 [facility] SPRAIN AND N EMERGENCY STRAIN PHYS 8479 SPRAIN AND 12-13-2014 [facility] STRAIN OF [facility] U[facility]PEC[facility] SITE OF BACK E9289 UNSPECIFIED 12-13-2014 [facility] ACCIDENT N EMERGENCY PHYS V140 PERSONAL 12-13-2014 [facility] HISTORY OF COMMUNITY ALLERGY TO HOSPITAL PENICILLIN 7392 NONALLOPATH 12-12-2014 SHARLENE CHR IC LESION OF THORACIC REGION NEC 7394 NONALLOPATH 12-12-2014 SHARLENE CHR IC LESION OF SACRAL REGION NEC 8460 SPRAIN AND 12-12-2014 SH[facility] CHR STRAIN OF LUMBOSACRAL 5119 UNSPECIFIED 07-12-2014 [place] [facility] PLEURAL [facility] HOSPITAL P 73803 OTHER 07-12-2014 [place] DISEASES OF MEDICAL LUNG NOT IMAGING ASS ELSEWHERE CLASSIFIED 77785 CHEST PAIN 07-12-2014 [facility] UNSPECIFIED MEDICAL IMAGING ASS 62680 OTHER CHEST 07-12-2014 [facility] PAIN [facility] P V1582 PERS HX 07-12-2014 [facility] TOBACCO USE [facility] P [facility] 16965 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-2012 [facility] IBULAR JOINT DISORDERS 3804 IMPACTED 05-16-2012 [facility] PSC 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 FRACTURE OF UPPER END OF TIBIA 23319 ENTHESOPATH 11-11-2009 [facility] Y OF PODIATRY UNSPECIFIED PLLC SITE 71981 PLICA 11-11-2009 [facility] SYNDROME PODIATRY PLLC 7295 PAIN IN 11-11-2009 [facility] SOFT PODIATRY TISSUES OF PLLC LIMB 15334 UNSPECIFIED 11-11-2009 [facility] SITE OF PODIATRY ANKLE PLLC SPRAIN AND STRAIN 28231 DISORDER OF 11-04-2009 [facility] UNSPECIFIED V4981 ASYMPTOMATI 11-04-2009 [facility] [place] [facility] POSTMENOPAU MURIEL STATUS 20261 PATHOLOGIC 10-27-2009 ELVA L.P. FRACTURE UNSPECIFIED SITE 90287 CLOSED 10-27-2009 [facility] FRACTURE OF PODIATRY SHAFT OF PLLC FIBULA Encounters Encounter Start End Date Code Location Performer Type Date [facility]OSP[facility] - [facility] 7 [facility] 7 [facility] 7 [facility] - 7 7 [facility] - 7 7 [facility] [place] - 6 6 [facility] [place] - 5 5 [facility] [place] - 5 5 [facility] - 5 5 [facility] - 5 5 [facility] - 5 5 [facility] 5 5 [facility] [place] [facility] 5 5 [facility] [place] 5 5 [facility] - 4 4 [facility] [place] [facility] 0 0 [facility]
--- OUTSIDE RECORDS SUMMARY | 2017-06-05 15:26 | External Medical Summary Rpt | CCD ---
Demographics Preferred Language Occitan Marital Status Unknown Confucianist Affiliation Unknown Race Unknown Ethnic Group Unknown Author Author , CHLOE CORONA Address Unknown Phone Immunization No patient found.
--- NOTE | 2017-06-05 15:29 | Emergency Room Report ---
History of Present Illness Time Seen by MD Fraga Presenting Problem in Triage Pt arrived:Walked Presenting Problem:PT REPORTS R SIDED UPPER BACK PAIN IN R SHOULDER BLADE AREA AND PAIN THAT "CIRCLES" AROUND COLUMBA LOWER RIBS AND ABD IN EPIGASTRIC AREA. PT REPORTS PAIN IS WORSENS WITH MOVEMENT. STATES PAIN BEGAN YESTERDAY. 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 N Clinical Suspician of Infection? N Mental Status: 1 - Regular (Normal Baseline) Sepsis Risk:Low Sepsis Risk Have you (or family members/close friends) recently traveled outside the [place]? N If Yes, where/when: Have you had exposure to infectious disease within the past month? N TB? Other? Specify: Patient with rib pain and back pain for the past few days with hx of spontaneous thoracic compression fractures requiring kyphoplasty at with Dr. Farrell as well as out in [place], [place], this past year while visiting family. Has similar pain today and is concerned about possible repeat fracture. Pain radiates anteriorly and to epigastrium. She has chronic constipation but moved bowels today and denies blood from above or below. Only cardiac RF is dad with unknown type of cardiac hx. ALLERGIES Coded Allergies: Penicillins (RASH/HIVES 06/05/17) azithromycin (NA-NAUSEA 06/05/17) Home Medications Reported Medications No Known Home Medications History Medical History General CAD? No Angina: No NE: No Hypertension? No Hyperlipidemia? No CHF? No DVT? No PE? No COPD? No Asthma? No Anemia? No GERD? No Gastric ulcers? Yes GI Bleed? No Hernia? No Thyroid Problems? No Hypothyroidism? No CVA? No Seizures? No Diabetes? No Renal Insuffiency? No End Stage Renal Disease? No UTI? No Stones? No GB Disease: No Nephritic Syndrome? No Asplenia? No Hepatitis? No Sickle Cell Disease? No Arthritis? No Migraines? No Cataracts? Yes Glaucoma? No MRSA? No HIV? No TB? No Anxiety? No Depression? No Cancer? No More? No Immunization Hx DT/Tetanus Unknown Surgical Hx Previous Surgery?Y D & C KYPHOPLASTY X2 COLUMBA CATARACTS Social History Smoking Hx Smoker: Never Smoker Tobacco: No Alcohol Alcohol: No Review of Systems All Other Systems Reviewed and Negative Cardiovascular see HPI Gastrointestinal see HPI Musculoskeletal see HPI Physical Exam Vital Signs Vital Signs Date Time Temp Pulse Resp B/P Pulse O2 O2 Flow FiO2 Ox Delivery Rate 06/05 1657 72 18 136/73 98 06/05 1637 18 06/05 1443 98.2 78 18 151/83 98 General Appearance normal appearance, WD/WN, no apparent distress, thin Eye Exam - bilateral eye normal exam, bilateral eye PERRL, bilateral eye EOMI Neck normal inspection, non-tender, supple, full range of motion Respiratory Status Yes: trachea midline, chest symmetrical, non tender chest. No: respiratory distress, tender on palpation, use of accessory muscles, pain on inspiration, pain on expiration. Lung Sounds bilateral: normal breath sounds, lungs clear. Cardiovascular normal exam, regular rate/rhythm, no peripheral edema, no gallop, no JVD, no murmur, no rub, normal peripheral pulses Gastrointestinal normal bowel sounds, normal exam, non tender, soft, no organomegaly, no guarding, no rebound Back bowel/bladder continent, gait normal, strt leg raising(L)-NML, strt leg raising(R)-NML, vertebral tenderness (mid thorax tender no stepoff) Extremities non-tender, normal range of motion, normal inspection, normal capillary refill, no calf tenderness, no pedal edema Strength 5 Upper Ext (L), 5 Upper Ext (R), 5 Lower Ext (L), 5 Lower Ext (R) Neurologic alert, normal exam, no motor/sensory deficits, oriented x 3 Glascow Coma Scale Glascow Coma Scale Response Value EYE response: 4 Spontaneously 4 MOTOR response: 6 OBEYS 6 VERBAL response: 5 Oriented & Converses 5 Total 15 Reflexes Reflexes normal Yes DTR 2+ tricep (R), 2+ tricep (L) Skin intact, normal color, warm/dry, no rash cons.w/shingles Medical Decision Making LABS/Meds/Orders Pt receiving controlled substance in ED? Yes Dawood was queried for this patient? Yes Reference #: [id number] Risks/benefits of using a controlled substance for treatment were discussed w/pt by me Results/Orders Laboratory Tests 06/05/17 1445: Lipase 224 06/05/17 1445: Sodium 137, Potassium 3.7, Chloride 103, Carbon Dioxide 27, BUN 16, Creatinine 1.0, Estimated Creat Clear 47 L, Estimated GFR (MDRD) 54 L, Glucose 101, Calcium 9.1, Total Bilirubin 0.7, AST 25, ALT 25, Alkaline Phosphatase 80, Creatine Kinase 96, CK-MB (CK-2) Rel Index 2.0, CK and CKMB Interp 1.9, Troponin I < 0.02, Total Protein 8.1, Albumin 4.0, Globulin 4.1 H, Albumin/Globulin Ratio 1.0 L, WBC 7.7, RBC 4.48, Hgb 13.8, Hct 42.0, MCV 93.8, RDW 12.4, Plt Count 306, MPV 7.1 L, Gran % 65.9, Gran # 5.1, Lymphocytes % 27.4, Monocytes % 4.9, Eosinophils % 1.3, Basophils % 0.5, Lymphocytes # 2.1, Monocytes # 0.4, Eosinophils # 0.1, Basophils # 0.0, PUBS MCHC 32.8, MCH 30.8 Current Medication Orders Sig/Jesus Start time Last Medication Dose Route Stop Time Status Admin Hydrocodone Bitart/ 0 .STK-MED ONE 06/05 1638 DC Acetaminophen PO Hydrocodone Bitart/ 1 TAB ONCE ONE 06/05 1545 DC 06/05 Acetaminophen PO 06/05 1546 1637 Sodium Chloride 10 ML PRN PRN 06/05 1515 AC IV 06/06 1504 Orders Procedure Date/time Status DIET-NOTHING BY MOUTH 06/[address] ABD/PELVIS REQ 06/05 1601 Complete LIPASE 06/[address] SCAN REQ 06/05 1516 Complete ELECTROCARDIOGRAM REQUEST 06/05 1504 Active IV SALINE LOCK 06/05 1504 Active CBC WITH AUTO DIFF 06/05 1504 Complete CARDIAC ENZYMES 06/05 1504 Complete CHEM 12 PROFILE 06/05 1504 Complete 12 LEAD EKG-RUBINA (INITIAL) 06/05 UNK Active XRAY/CT/US XRAY/CT/US CT T-spine CT interpretation by reviewed by me (report reviewed), discussed w/ radiologist Time results known: 1716 CT Results T7 likely new anterior compression fracture, other old fx's and evidence of prior kyphoplasty Comment Abd and pelvis lots of gas Departure Departure Time of Disposition 1731 Disposition DC Home or Self Care(routine) Clinical Impression Primary Impression: Back pain Qualifiers: Back pain location: thoracic back pain Back pain laterality: midline Secondary Impressions: Epigastric pain Condition STABLE Referrals KAMILLA SCHAFFER APRN (Family) Patient Instructions Thoracic Back Pain Additional Instructions Lortab, take Miralax over the counter to avoid constipation; see Kamilla this week for epigastric pain and bring your disk and make an apppointment with Dr. Farrell at or in [place] for further evaluation of back pain. Discharge Counseling Counseled pt/family regarding diagnosis, test results, R/B of controlled subst., medications/RX, home care, follow up needs Prescriptions Current Visit Scripts HYDROCODONE/ACETAMINOPHEN (LORTAB 5-325 (generic)) 1 TAB PO Q6HP PRN PAIN #20 TAB ED Critical Care Critical Care No at 0896
[2017-06-05 15:39] LABS: BUN 16 mg/dL (7-18)
[2017-06-05 15:40] LABS: GFR (ESTIMATED) 54 ML/MIN (59-)
--- NOTE | 2017-06-05 16:58 | RADIOLOGY REPORT PS360 ---
CT THORACIC SPINE W/O CONTRAST HISTORY: COMPRESSION FX,PAIN Patient Age: 71 years: Female Ordering Physician: Dayami Renee MD TECHNIQUE: Helical CT scanning performed through the thoracic spine with sagittal coronal reconstructions on CT workstation COMPARISON :MRI of the thoracic spine January 2015. No recent studies available for comparison FINDINGS Beginning inferiorly at the T-spine . L2 vertebral. osteoporotic but intact and normal. L1 vertebra demonstrates severe compression fracture of which yielded some retropulsion at the superior posterior corner of T L1 which indents the anterior aspect and yields relative spinal stenosis at this level.-Suspect this feature present on with the initial compression injury at L1 but those studies are not available for comparison Patient has undergone kyphoplasty/vertebroplasty. No posterior epidural extension nor foraminal extension of the methyl methacrylate material bone cement material. . There is slight extension to the superior endplate of L1 (on sagittal slice 21) into the end inferior margin of T12/L1 disc.. T12/L1. Diffuse disc bulge. T12 vertebra mild to moderate wedge compression fracture. Patient has undergone vertebroplasty. Note Bone cement extending upward through the superior endplate T12 into the T11/12 disc space. However we do not see more significant foraminal or epidural extension of cement.. Osteoporotic T11 base through T8. T7 compression fracture with 40% loss of height centrally., along with Mild wedging. Age-indeterminate but could indeed be recent given the abrupt offset/disruption of anterior cortex of T7 vertebra as seen on axial sagittal images 30 age 33. T6. Old wedge compression fracture unchanged since previous MR 2015. Up to to 60% loss of height. T5. With Compression fracture with up to 40-50 % loss of height. There is Anteriorly and central. Age-indeterminate but more likely old This series of wedge compression fractures yields prominent kyphosis here at the mid T-spine. The vertebral bodies above this at the T-spine are are osteoporotic but intact. There is disc space narrowing at C6/7 with posterior hypertrophic ridging and spurring at this level The facets appear intact with mild degenerative facet changes, most portable at lower T-spine The lungs appear clear with no significant mass or lesion. Mild pleural and parenchymal scarring towards right lung base. . Airways appear satisfactory. Dilated air-filled esophagus, incidentally noted. Patient is quite thin.. IMPRESSION 1. There is a series of 3 compression fractures involving T5, T6, T7 yielding accentuated kyphosis through this segment. .The most severe T6 wedge compression fracture unchanged since 2015 . Less pronounced T5 wedge compression fracture tend to favor is old.. .However suspect, & cannot exclude recent wedge compression fracture at T7 (note abrupt disruption appearance of anterior cortex T7... Clinical correlation. Prior films would be required to further confirm ) 2. Patient has undergone recent kyphoplasty at T12 & at the more severe L1 compression fractures.. . There is retropulsion at superior posterior corner L1 which yields relative spinal stenosis. This likely present before the kyphoplasty but would require prior CT or MRI confirm such. . Would only note slight superior extension of bone cement through superior endplate at each of these vertebra into the adjacent disc space. This is most evident superior T12,. It is Is noted but is not of significance at this juncture. .. We do NOT see any bone cement into the epidural space or foramen which would be significant 3.. No acute lung findings. Mild scarring and atelectasis right lung base.
--- NOTE | 2017-06-05 17:21 | RADIOLOGY REPORT PS360 ---
CT ABD PELVIS W/O CONTRAST HISTORY: ABDOMINAL PAIN, POSSIBLE ILEUS VS CONSTIPATION history of recent kyphoplasty for spontaneous fracture. Now has pain lower T-spine T12. Also has abdominal pain with constipation. Patient Age: 71 years: Female Ordering Physician: Dayami Renee MD TECHNIQUE: Helical CT scanning performed the abdomen and pelvis with no oral nor IV contrast utilized. COMPARISON :Today's CT thoracic spine previous MRI lumbar spine January 2015 FINDINGS Lumbar spine comments: . The patient is undergone interval vertebroplasty of wedge compression fractures at T12 and severe wedge compression fracture at L1. These were discussed in detail on the CT thoracic spine report. Please see such. L1 with a most pronounced compression fracture with associated mild retropulsion at the superior posterior corner of L1 yielding a relative spinal stenosis at this level.. This was likely present before the vertebroplasty. Vertebroplasty cement at each of these vertebra extends to the superior endplate into the adjacent disc space. This is most evident at T12. L2 & L3 vertebra appear osteoporotic but intact L4 vertebra:. Stable superior endplate compression concavity, no significant change 2015.. L5. No acute findings. Only slight decreased height of this vertebra overall appears stable to perhaps very slight additional loss of height vs 2015. Exuberant facet hypertrophy the left at L5/S1 encroaches upon the left foramen. Prominent facet hypertrophy also at L4/5 anterolisthesis L3/4.. ===== Lung bases again note the mild scarring and atelectasis at the posterior right lung base. Unimpressive. Mild cardiomegaly. Abdomen/pelvis. Lack of oral and IV contrast decreases sensitivity. Liver no significant findings. There may be a small less than 1 cm cyst margin right lobe at gallbladder fossa. Gallbladder. Likely dense sludge in gallbladder but no calcified stones. No enlargement nor inflammation evident. Pancreas. Not well seen on today's study due streak artifact from adjacent gas-filled bowel loops & lack of IV contrast. Difficult to exclude minor lucency at anterior body but I favor this is due to streak artifact. No obvious mass. Pancreatic duct upper normal size. Spleen. Modest size with extensive granulomatous calcifications Kidneys no urinary tract obstruction Right kidney.. Nonobstructive Renal calculi throughout most evident towards lower pole... The largest measuring up to 6.5 mm with other tiny punctate calculi seen throughout right kidney.. Question possible a 16 mm fat density lipoma or possible angiolipoma off inferior pole of the right kidney. Not of current significance but warrants follow-up 6 months. Left kidney. Again streak artifact likely accounts for slight low density density appearance at the anterior left kidney. Less likely 12 mm debris-filled cyst. Again 6 month follow-up kidney suggested... Pelvis. Moderate Distended urinary bladder. Uterus normal size no adnexal masses. No evidence of appendicitis. . GI tract. Generous gas seen throughout both large & small bowel but with no significant bowel dilatation nor obstruction overall. Moderate to generous solid stool at the rectosigmoid. Minimal stool descending colon and transverse colon with liquid stool right colon.. Small bowel no dilatation or obstruction but there is increased gas with a few scattered small air-fluid levels.. There is a small stippled area of gas which I believe is merely related to the duodenum and possibly duodenal diverticulum. Doubt of significance. No free air. No free fluid abdomen or pelvis. IMPRESSION 1 No discrete acute findings in the abdomen or pelvis.. 2.. Generous gas throughout large & small bowel with liquid stool at the right colon slightly generous fluid distal small bowel. Bowel.. Possible mild ileus Moderate solid stool throughout the rectosigmoid but. No significant appearing Constipation 3. Recent kyphoplasty T12 and more severe L1 compression fracture. No significant acute associated findings. 4. No urinary tract obstruction Right kidney. Scattered nonobstructive renal calculi most evident the lower pole Question lipoma or age a lipoma fatty density of lower pole right kidney. Not of recurrent significance but would benefit from follow-up CT kidneys in 6 months.- Preferably with contrast .
--- NOTE | 2017-06-05 17:30 | RADIOLOGY REPORT PS360 ---
CHEST-AP VIEW ONLY HISTORY: hx kyphoplasty for spontaneous comprsn fx now has pain Patient Age: 71 years: Female Ordering Physician: Dayami Renee MD TECHNIQUE: AP portable upright upright on stretcher COMPARISON :07/12/2014 CXR 2 view FINDINGS COPD with less optimal inspiration on this chest film. Mild fibrotic changes seen towards the bases bilaterally. No acute pulmonary findings. Minimal density projected over the left sixth or seventh rib again noted similar to previous 2014 exam. The heart appears mildly enlarged.. Dipika and mediastinal structures appear stable satisfactory and unchanged. The dense appearance L1 and L2 vertebra from recent kyphoplasty noted. IMPRESSION: Nothing definitely acute COPD. With less optimal inspiration today. Mild fibrotic changes most evident towards lung bases. Possible mild bibasilar atelectasis on current study . Mild cardiomegaly. No CHF.
[2017-06-05] MEDS ORDERED: HYDROCODONE/APA1 TA8 PO (17:34)
[2017-06-05 17:44] VITALS: BP 130/65
== END 2017-06-05 17:45 | disposition home or self-care (01) ==
LOC: ER 14:38
PROVIDERS: Emergency Medicine
DX: M54.6 Pain in thoracic spine (principal); R10.13 Epigastric pain; Z88.0 Allergy status to penicillin